=== PATIENT | female | born 1940 | race Caucasian/White ===

== ENCOUNTER 2022-04-08 16:16 | Emergency (ER) | payer MEDICARE, MEDICAID, SELFPAY ==
[2022-04-08] VITALS (7 sets, daily range): BP systolic 126–165; BP diastolic 54–70; PULSE 46–78; RESP 15–18; TEMP 36.5–36.6; O2SAT 96–98; BMI 23.3
--- NOTE | 2022-04-08 16:25 | HMH.EDGENADL ---
Discharge Plan Disposition Patient Disposition: Home, Self-Care Condition: Good Chief Complaint: Weakness Activity Restrictions/Add. Instructions Additional Instructions/Restrictions: Hold your metoprolol for the next 2 days and follow-up with your primary physician as soon as possible for reevaluation Clinical Impressions Clinical Impression: Fatigue, Bradycardia Discharge ED Provider: Neville Stevens General Adult HPI General Chief complaint: Weakness Stated complaint: weakness voice strung out Time Seen by Provider: 04/08/22 16:25 History of Present Illness HPI narrative: 82-year-old female with history of hyper lipidemia, hypertension, CAD with 9 prior stents. She presents today with general fatigue onset approximately 11 AM today or about 5-1/2 hours ago. She noticed it while shopping at the store. She does not report focal deficits, weakness, blurry or double vision, headache. She does state that she feels dizzy, has some difficulty elaborating on that. Denies overt room spinning, denies feeling off balance like she is going to fall down or near syncopal. She does states she feels generally unwell. Denies any chest pain, shortness of breath, nausea, vomiting, abdominal pain, diarrhea. She is accompanied by granddaughter who reports she is staying with her and does have some mild dementia and there was some concern that she may have accidentally taken another family members Risperdal. Related Data Allergies Allergy/AdvReac Type Severity Reaction Status Date / Time No Known Allergies Allergy Verified 04/08/22 16:33 [facility] Social History Smoking Status: Never smoker alcohol intake: never current occupational status: unemployed Travel in the last 8 weeks: None ROS Obtained: Yes Systems reviewed as appropriate & no additional complaints except as documented Constitutional Constitutional: Reports system reviewed and no additional complaints, except as documented Eyes Eyes: Reports system reviewed and no additional complaints, except as documented ENT Ears, Nose, Mouth, and Throat: Reports system reviewed and no additional complaints, except as documented Cardiovascular Cardiovascular: Reports system reviewed and no additional complaints, except as documented Respiratory Respiratory: Reports system reviewed and no additional complaints, except as documented Gastrointestinal Gastrointestingal: Reports system reviewed and no additional complaints, except as documented Genitourinary Female Genitourinary: Reports system reviewed and no additional complaints, except as documented Musculoskeletal Musculoskeletal: Reports system reviewed and no additional complaints, except as documented Integumentary/Breasts Skin/Breast: Reports system reviewed and no additional complaints, except as documented Neurologic Neurologic: Reports system reviewed and no additional complaints, except as documented Endocrine Endocrine: Reports system reviewed and no additional complaints, except as documented Hematologic/Lymphatic Henatologic/Lymphatic: Reports system reviewed and no additional complaints, except as documented Allergic/Immunologic Allergic/Immunologic: Reports system reviewed and no additional complaints, except as documented Physical Exam General General appearance: alert and in no apparent distress Head Head exam: atraumatic, normocephalic and normal inspection Eye Eye exam: Present normal appearance, PERRL and EOMI ENT ENT exam: Present normal exam, normal oropharynx, mucous membranes moist, TM's normal bilaterally and normal external ear exam Neck Neck exam: Present normal inspection, full ROM and trachea midline; Absent meningismus or lymphadenopathy Chest Chest inspection: Present normal inspection and symmetric chest wall rise; Absent tenderness Respiratory Respiratory exam: Present normal lung sounds bilaterally; Absent respiratory distress Cardiovascula
--- NOTE | 2022-04-08 16:27 | XR_ITS ---
PROCEDURE INFORMATION: Exam: XR Chest Exam date and time: 04/08/2022 4:46 PM Age: 82 years old Clinical indication: Shortness of breath; Additional info: Sob/cp TECHNIQUE: Imaging protocol: Radiologic exam of the chest. Views: 1 view. COMPARISON: No relevant prior studies available. FINDINGS: Lungs: No lobar consolidation, pleural effusion or pulmonary edema. Pleural spaces: See Lungs finding. Heart/Mediastinum: Large heart. Coronary artery stent. Bones/joints: Unremarkable. IMPRESSION: No lobar consolidation, pleural effusion or pulmonary edema.
[2022-04-08 16:49] LABS: Basophils # 0.1 K/mm3 (0-0.2); Basophils % 1.5 % (0.1-2.0); Eosinophils # 0.2 K/mm3 (0.0-0.4); Eosinophils % 3.2 % (0.1-12.0); Hematocrit 39.4 % (37.0-47.0); Hemoglobin 13.4 g/dL (12.2-16.2); Lymphocytes # 1.3 K/mm3 (0.7-4.5); Lymphocytes % 26.9 % (10-50); Mean Corpuscular Hemoglobin 32.2 pg (27.0-31.2); Mean Corpuscular Volume 94.7 fl (81-99); Mean Platelet Volume 8.1 fl (7.4-10.4); Monocytes # 0.4 K/mm3 (0.1-1.0); Monocytes % 7.3 % (1.7-9.3); Neutrophils % 61.1 % (37.0-80.0); Platelet Count 211 K/mm3 (142-424); Red Blood Count 4.16 M/mm3 (4.20-5.40); Red Cell Distribution Width 14.1 % (11.5-17.5)
--- NOTE | 2022-04-08 16:51 | ECG_ITS ---
APPROVED REPORT Exam: Resting ECG HR:46 bpm ECG Measurements Heart Rate 46 AXES AZ 253 P 64 QRSd 95 QRS 58 QT 544 T 16 QTc 504 Conclusion SINUS BRADYCARDIA WITH FIRST DEGREE AV BLOCK MODERATE ST DEPRESSION [0.05+ mV ST DEPRESSION] PROLONGED QT INTERVAL CRITICAL TEST RESULT UNCONFIRMED REPORT Electronically signed by : Mack Mackay MD 04/09/2022 13:51:07
[2022-04-08 16:54] LABS: Chloride 98 mmol/L (98-107); Sodium 139 mmol/L (136-145)
[2022-04-08 16:55] LABS: Potassium 3.6 mmoL/L (3.5-5.1)
[2022-04-08 16:57] LABS: Alanine Aminotransferase 34 U/L (12-78); Alkaline Phosphatase 77 U/L (38-126); Aspartate Amino Transferase 51 U/L (14-36); Bilirubin,Total 0.2 mg/dl (0.2-1.3); Blood Urea Nitrogen 16 mg/dl (7-17); Creatinine Clearance Estimated 43 mL/min (50-200); Estimated Glomerular Filt Rate 80 ml/min (>60); GFR (African American) 97 ML/MIN (>60)
[2022-04-08 16:58] LABS: Albumin Level 4.4 g/dl (3.5-5.0); Albumin/Globulin Ratio 1.5 (1.1-1.8); Anion Gap 15.6 mEq/L (5-15); Carbon Dioxide 29 mmol/L (22.0-30.0); Glucose 174 mg/dl (74-100); Total Protein,Serum 7.4 g/dl (6.3-8.2)
[2022-04-08 17:11] LABS: Coronavirus 19, PCR Not Detected (NotDetected); Influenza A, PCR Not Detected (NotDetected); Influenza B, PCR Not Detected (NotDetected)
[2022-04-08 17:11] LABS: Microscopic, Urine URINE MICROSCOPIC (MICROSCOPIC)
[2022-04-08 17:13] LABS: Appearance,Urine CLEAR (Clear); Bilirubin,Urine Negative (Negative); Blood, Urine Negative (Negative); Color,Urine YELLOW (Yellow); Glucose,Urine (UA) Negative (Negative); Ketones,Urine Negative (Negative); Leukocyte Esterase,Urine TRACE (Negative); Nitrate,Urine Negative (Negative); Protein,Urine Negative (Negative); Specific Gravity, Urine 1.025 (1.005-1.030); Urobilinogen,Urine 0.2 EU/dl (0.2)
[2022-04-08 17:16] LABS: Troponin I < 0.01 ng/ml (0.00-0.034)
[2022-04-08 17:29] LABS: Bacteria,Urine 1+ /lpf; Yeast,Urine Occasional /lpf
--- NOTE | 2022-04-08 17:51 | PC.NURSE ---
Addendum entered by Mirella Tubbs 04/08/22 18:04: Rounded on pt and updated them that MD was dealing with emergent situation and would be with them shortly. No new needs at this time. Original Note: let pt know that we was working an emergency and checked to see if they needed anything
== END 2022-04-08 19:14 | disposition home or self-care (01) ==
PROVIDERS: Emergency Provider Emergency Medicine
DX: R00.1 Bradycardia, unspecified (principal); R53.83 Other fatigue
CPT/HCPCS: 71045; 80053; 81001; 84484; 85025; 93005; 99285; C9803; U0003; U0005